=== PATIENT | male | born 1975 | race Caucasian/White ===

== ENCOUNTER 2016-09-15 23:21 | Emergency (ER) | payer MEDICAID ==
[~2016-09-15] VITALS: Ht 172.7 cm; Wt 98.9 kg
[2016-09-15 23:34] VITALS: BP 141/72; PULSE 65; RESP 18; TEMP 98; O2SAT 98
[2016-09-16] MEDS ORDERED: IBUPROFEN 800 MG TABLET PO ONE
[2016-09-16] MEDS ORDERED: IBUPROFEN 800 MG TABLET ONE (00:06)
[2016-09-16 00:35] VITALS: BP 136/72; PULSE 67; RESP 16; TEMP 98; O2SAT 98
== END 2016-09-16 00:35 | disposition home or self-care (01) ==
LOC: SED 23:21
DX: M77.9 Enthesopathy, unspecified (principal)
CPT/HCPCS: 73090; 99284

== ENCOUNTER 2017-01-23 00:06 | Emergency (ER) | payer MEDICAID ==
[~2017-01-23] VITALS: Ht 175.3 cm; Wt 90.7 kg
[2017-01-23 00:06] VITALS: BP_SYST 142
[2017-01-23] MEDS ORDERED: KETOROLAC TROMETHAMINE 60 MG/2 ML VIAL IM ONE (01:45)
[2017-01-23 02:40] VITALS: BP_SYST 132
== END 2017-01-23 02:40 | disposition home or self-care (01) ==
LOC: SED 00:06
DX: S16.1XXA Strain of muscle, fascia and tendon at neck level, initial encounter (principal); X58.XXXA Exposure to other specified factors, initial encounter; Y93.89 Activity, other specified; Y92.89 Other specified places as the place of occurrence of the external cause; Y99.8 Other external cause status
CPT/HCPCS: 96372; 99283; J1885

== ENCOUNTER 2021-05-03 21:26 | Emergency (ER) | payer MEDICAID ==
[~2021-05-03] VITALS: Ht 175.3 cm; Wt 72.6 kg
[2021-05-03 21:50] VITALS: BP_SYST 131
[2021-05-04] MEDS ORDERED: BACITRACIN 1 GM OINT TP ONE (00:46)
[2021-05-04] MEDS ORDERED: DIPH-TET-PERTUS Vaccine 0.5 ML VIAL (ADACEL) I.M. ONE (00:46)
[2021-05-04] MEDS ORDERED: BACI15OI13 TP (00:50)
[2021-05-04] MEDS ORDERED: ACETAMINOPHEN 500 MG TABLET ONE (00:54)
[2021-05-04] MEDS ORDERED: ACETAMINOPHEN 500 MG TABLET PO ONE (01:00)
[2021-05-04 01:14] VITALS: BP_SYST 129
== END 2021-05-04 01:14 | disposition home or self-care (01) ==
LOC: SED 21:26
DX: S01.01XA Laceration without foreign body of scalp, initial encounter (principal); I10 Essential (primary) hypertension; W20.8XXA Other cause of strike by thrown, projected or falling object, initial encounter; Y93.89 Activity, other specified; Y92.89 Other specified places as the place of occurrence of the external cause; Y99.8 Other external cause status
CPT/HCPCS: 90715; 99283

== ENCOUNTER 2021-05-13 22:30 | Emergency (ER) | payer MEDICAID ==
[~2021-05-13] VITALS: Ht 175.3 cm; Wt 72.6 kg
[2021-05-13 22:30] VITALS: BP_SYST 123
[~2021-05-13 22:30] MED LIST: BACI15OI13 TP
--- NOTE | 2021-05-13 22:36 | NUR ---
Patient to ER bed 5 to gown for evaluation. Side rails up. Report given to debi YING.
--- NOTE | 2021-05-13 22:37 | NUR ---
patient here for suture removal on head. denies any pain. no redness or swelling noted. voiced no complaints
--- NOTE | 2021-05-13 22:38 | NUR ---
Dr. Gutierrez at bedside for suture removal
[2021-05-13 22:42] VITALS: BP_SYST 123
--- NOTE | 2021-05-13 22:42 | NUR ---
Patient given written and verbal discharge instructions and verbalizes understanding. ER MD discussed with patient the results and treatment provided. Patient in stable condition. ID arm band removed. no rx given. Patient educated on pain management and to follow up with PMD. Pain Scale 0/10 Opportunity for questions provided and answered.
== END 2021-05-13 22:42 | disposition home or self-care (01) ==
LOC: SED 22:30
DX: S01.81XD Laceration without foreign body of other part of head, subsequent encounter (principal); I10 Essential (primary) hypertension; Z48.02 Encounter for removal of sutures; Z79.899 Other long term (current) drug therapy; W45.8XXD Other foreign body or object entering through skin, subsequent encounter
CPT/HCPCS: 99281